=== PATIENT | female | born 1945 | race Caucasian/White ===

== ENCOUNTER → 2017-08-08 | Outpatient (REF) | payer MEDICARE ==
[2017-08-08 12:46] LABS: ERYTHROCYTE SEDIMENTATION RATE 4 mm/hr (0-30)
[2017-08-08 12:49] LABS: CPK CREATINE PHOSPHOKINASE 171 U/L (26-192)
== END ==
LOC: M LABDRAW1 10:55
DX: M79.603 Pain in arm, unspecified (principal)
CPT/HCPCS: 82550

== ENCOUNTER → 2017-10-15 | Outpatient (REF) | payer MEDICARE ==
[2017-10-15 19:32] LABS: BASO % 0.3 % (0.0-1.0); EOS # 0.1 10^3/uL (0.0-0.50); EOS % 1.3 % (0.0-3.0); HEMATOCRIT 44.4 % (36.0-47.0); HEMOGLOBIN 14.7 g/dl (12.0-15.5); IMMATURE GRANULOCYTE % 0.2 % (0-3.0); LYMPH # 1.7 10^3/uL (1.5-4.5); LYMPH % 15.2 % (24.0-44.0); MEAN CORPUSCULAR HEMOGLOBIN 30.9 pg (27.0-33.0); MEAN CORPUSCULAR HGB CONC 33.1 g/dl (32.0-36.5); MEAN CORPUSCULAR VOLUME 93.5 fl (80.0-96.0); MONO # 0.8 10^3/uL (0.0-0.8); MONO % 7.3 % (0.0-5.0); NEUTROPHILS # 8.2 10^3/uL (1.8-7.7); NEUTROPHILS % 75.7 % (36.0-66.0); PLATELET COUNT, AUTOMATED 329 10^3/uL (150-450); RED BLOOD COUNT 4.75 10^6/uL (4.00-5.40); RED CELL DISTRIBUTION WIDTH 13.3 % (11.5-14.5); WHITE BLOOD COUNT 10.9 10^3/uL (4.0-10.0)
[2017-10-15 19:39] LABS: ALBUMIN 3.7 GM/DL (3.2-5.2); ALBUMIN/GLOBULIN RATIO 1.32 (1.00-1.93); ALKALINE PHOSPHATASE 88 U/L (45-117); ALT/SGPT 17 U/L (12-78); ANION GAP 8 MEQ/L (8-16); AST/SGOT 13 U/L (7-37); BILIRUBIN,TOTAL 0.3 MG/DL (0.2-1.0); BLOOD UREA NITROGEN 19 MG/DL (7-18); CALCIUM LEVEL 9.1 MG/DL (8.8-10.2); CARBON DIOXIDE LEVEL 29 MEQ/L (21-32); CHLORIDE LEVEL 109 MEQ/L (98-107); CPK CREATINE PHOSPHOKINASE 55 U/L (26-192); CREATININE FOR GFR 0.72 MG/DL (0.55-1.30); GLOMERULAR FILTRATION RATE > 60.0 (>39); GLUCOSE, FASTING 88 MG/DL (70-100); POTASSIUM SERUM 4.1 MEQ/L (3.5-5.1); SODIUM LEVEL 146 MEQ/L (136-145); TOTAL PROTEIN 6.5 GM/DL (6.4-8.2)
[2017-10-15 20:03] LABS: ERYTHROCYTE SEDIMENTATION RATE 4 mm/hr (0-30)
== END ==
LOC: M LABDRAW1 18:14
DX: M79.1 Myalgia (principal); R53.83 Other fatigue
CPT/HCPCS: 82550

== ENCOUNTER 2018-12-04 23:14 | Emergency (ER) | payer MEDICARE ==
[~2018-12-04] VITALS: Ht 162.6 cm; Wt 82.7 kg
[2018-12-04 23:14] VITALS: BP 157/78
[~2018-12-04 23:14] MED LIST: AMLO10TA5 PO; ASPI81TAEC PO; ATOR1TAB21 PO; CLAR1TAB2 PO; CLOP75TA2 PO; IBUPOTC PO
[2018-12-04] MEDS ORDERED: PRED20TA (23:20)
== END 2018-12-05 01:40 | disposition home or self-care (01) ==
LOC: M ED 23:14
DX: S81.801A Unspecified open wound, right lower leg, initial encounter (principal); W22.8XXA Striking against or struck by other objects, initial encounter; Y92.099 Unspecified place in other non-institutional residence as the place of occurrence of the external cause; Y93.9 Activity, unspecified; Y99.9 Unspecified external cause status; I10 Essential (primary) hypertension; H53.33 Simultaneous visual perception without fusion; Z88.2 Allergy status to sulfonamides

== ENCOUNTER → 2020-08-19 | Outpatient (CLI) | payer MEDICARE ==
[~2020-08-19] MED LIST changes: -AMLO10TA5 PO; +AMLO1TAB25 PO; +ASPI-569 PO; -ASPI81TAEC PO; +PRED20TA
--- NOTE | 2020-08-19 12:59 | REPMRS ---
Patient History Patient is postmenopausal. Family history of breast cancer at age 48 in daughter. Patient had a right breast bx years ago that was negative, not sure of dates or where 3D TOMOSYNTHESIS WAS PERFORMED. The [facility] lifetime risk for breast cancer is 3.9%. Volpara breast density b. Digital Woman Screen Mammo: August 19, 2020 - Exam #: [id number] Bilateral CC and MLO view(s) were taken. Technologist: Mali Patel, Technologist Prior study comparison: November 02, 2017, bilateral digital mammo screening bilat, performed at [facility]. September 26, 2016, bilateral digital mammo screening bilat, performed at [facility]. FINDINGS: There are scattered fibroglandular densities. There has been no change in the appearance of the mammogram from the prior studies. There is a mild amount of residual fibroglandular tissue which is fairly symmetric. There is no interval development of dominant mass, architectural distortion, or clustered microcalcification suggestive of malignancy. Assessment: BI-RADS/ACR category 1 mammogram. Negative Mammogram. Recommendation Routine screening mammogram in 1 year (for women over age 40). This mammogram was interpreted with the aid of an FDA-approved computer-aided dectection system. Electronically Signed By: Manuel Barakat MD 08/19/20 [id number]
--- NOTE | 2020-08-19 13:44 | DEXAMM ---
INDICATION: Z13.820 SCR FOR OSTEOPOROSIS. COMPARISON: 10/28/2013, 05/11/2004. TECHNIQUE: Bone density was measured using dual-energy x-ray absorptiometry (DEXA). FINDINGS: AP SPINE L1-L4 BMD 1.101 g/cm2 Young Adult T-Score -0.8 Age Matched Z-Score 1.0. LT FEMUR, TOTAL BMD 0.722 g/cm2 Young Adult T-Score -2.3 Age Matched Z-Score -0.5. LT NECK BMD 0.646 g/cm2 Young Adult T-Score -2.8 Age Matched Z-Score -0.8. RT FEMUR, TOTAL BMD 0.775 g/cm2 Young Adult T-Score -1.8 Age Matched Z-Score 0.0. RT NECK BMD 0.700 g/cm2 Young Adult T-Score -2.4 Age Matched Z-Score -0.4. IMPRESSION: There is normal bone density of the spine. There is osteoporosis of the left hip. There is low bone density of the right hip. The density of the spine has increased 2.5% since the initial exam on 05/11/2004. The density of the spine decreased 11.2% since most recent exam on 10/28/2013. The density of the left hip has decreased 16.8% since initial exam on 05/11/2004. The density of the left hip has decreased 14.1% since most recent exam on 10/28/2013. The density of the right hip has decreased 12.7% since the initial exam on 05/11/2004. The density of the right hip has decreased 10.7% since the most recent exam on 10/28/2013. FOLLOW-UP: Recommendation for the next bone density exam: 2 years. <Electronically signed by Manuel Barakat > 08/19/20 [id number]
== END ==
LOC: M WHC 10:51
PROVIDERS: ATTEND Family Medicine
DX: Z12.31 Encounter for screening mammogram for malignant neoplasm of breast (principal); Z80.3 Family history of malignant neoplasm of breast; M81.0 Age-related osteoporosis without current pathological fracture; M85.851 Other specified disorders of bone density and structure, right thigh

== ENCOUNTER → 2020-09-17 | Outpatient (CLI) | payer MEDICARE ==
--- NOTE | 2020-09-17 10:35 | REP ---
INDICATION: R74.0 ELEVATION OF LEVELS LDH. COMPARISON: None. TECHNIQUE: Real-time sonographic evaluation of right upper quadrant performed. FINDINGS: There are multiple small subcentimeter gallstones in the gallbladder. There is no gallbladder wall thickening or pericholecystic fluid.. There is a moderate degree of intrahepatic biliary dilatation. However the common bile duct is not dilated measuring 2 mm in maximum diameter. The liver demonstrates homogeneous echotexture with no gross mass. Visualized portions of the pancreas are unremarkable. There is no pancreatic duct dilatation. Some portions of the pancreas are not visualized due to overlying bowel gas. The right kidney demonstrates no hydronephrosis, with a normal size of 9.5 cm in length. No free fluid is seen. IMPRESSION: Multiple subcentimeter gallstones in the gallbladder with no evidence of gallbladder wall thickening or pericholecystic fluid. Moderate intrahepatic biliary dilatation with no dilatation of common bile duct or pancreatic duct. Recommend further evaluation of the biliary system with MRI with and without contrast, and MRCP. <Electronically signed by Manuel Barakat > 09/17/20 103
== END ==
LOC: M WHC 09:26
PROVIDERS: ATTEND Family Medicine
DX: R74.01 Elevation of levels of liver transaminase levels (principal); K80.20 Calculus of gallbladder without cholecystitis without obstruction

== ENCOUNTER → 2021-01-10 | Outpatient (CLI) | payer MEDICARE ==
[2021-01-10 10:51] LABS: BLOOD UREA NITROGEN 15 MG/DL (7-18); CREATININE FOR GFR 0.67 MG/DL (0.55-1.30); GLOMERULAR FILTRATION RATE > 60.0 (>39)
== END ==
LOC: M PLALAB 08:48
PROVIDERS: ATTEND Internal Medicine Gastroenterology
DX: R93.3 Abnormal findings on diagnostic imaging of other parts of digestive tract (principal)

== ENCOUNTER → 2021-01-14 | Outpatient (CLI) | payer MEDICARE ==
[~2021-01-14] MED LIST changes: +PROHANCE 279.3MG/ML 15ML VIAL ONE
--- NOTE | 2021-01-14 15:49 | REP ---
INDICATION: ABNORMAL FINDINGS ON DX IMAGING OF PRT DIGESTIVE T. COMPARISON: Ultrasound 09/17/2020. TECHNIQUE: Multiple sequences obtained in the axial coronal planes prior to and following the intravenous administration of 15 mL ProHance. FINDINGS: No intrinsic liver mass is seen. There is no hepatomegaly. However there is moderate intrahepatic biliary dilatation. The common bile duct is also moderately dilated, most proximal aspect measures approximately 15-16 mm in diameter in the more distal aspect measures about 12 mm in maximum diameter. The gallbladder is also moderately distended with no it definite internal filling defect. There is a solid mass visualized in the marky hepatis which compresses the common bile duct. This measures approximately 4.1 x 2.9 x 2.7 cm. The spleen is normal in size with no intrinsic abnormality. The adrenal glands are normal. No pancreatic mass or pancreatic duct dilatation is seen. Subcentimeter cysts are seen in the left kidney. There is no hydronephrosis bilaterally. The abdominal aorta is normal in caliber. There is no free fluid. IMPRESSION: There is a mass in the marky hepatis measuring 4.1 x 2.9 x 2.7 cm. This compresses the common bile duct. There is diffuse dilatation of the common bile duct, centrally 15-16 mm in maximum diameter and distally 12 mm in maximum diameter. There is moderate intrahepatic biliary dilatation. There is moderate distention of the gallbladder. <Electronically signed by Manuel Barakat > 01/14/21 [id number]
== END ==
LOC: M PLAIMG 13:55
PROVIDERS: ATTEND Internal Medicine Gastroenterology
DX: R93.3 Abnormal findings on diagnostic imaging of other parts of digestive tract (principal); K76.89 Other specified diseases of liver; K82.8 Other specified diseases of gallbladder; K83.1 Obstruction of bile duct
CPT/HCPCS: 74183; A9576

== ENCOUNTER → 2021-01-29 | Outpatient (CLI) | payer MEDICARE ==
[~2021-01-29] MED LIST changes: +COQ-100C5 PO; +D31000TA2 PO; -PROHANCE 279.3MG/ML 15ML VIAL ONE; +VITMTA PO
== END ==
LOC: M LABSMTC 10:36
PROVIDERS: ATTEND Anesthesiology
DX: Z01.812 Encounter for preprocedural laboratory examination (principal); Z20.822 Contact with and (suspected) exposure to COVID-19

== ENCOUNTER 2021-02-02 14:26 | Day surgery (SDC) | payer MEDICARE ==
[~2021-02-02] VITALS: Ht 162.6 cm; Wt 78.8 kg
[~2021-02-02 14:26] MED LIST changes: +LR 1,000 ML IV ONE
[2021-02-02] MEDS ORDERED: ISOVUE-300 61% 50ML VIAL As Ordered ONE (14:46)
[2021-02-02] MEDS ORDERED: ROCURONIUM BROMIDE 50 MG/5 ML VIAL As Ordered ONE (15:21)
[2021-02-02] MEDS ORDERED: ONDANSETRON 4MG/2ML VIAL As Ordered ONE (15:21)
[2021-02-02] MEDS ORDERED: propofoL 200 MG/20 ML VIAL As Ordered ONE (15:21)
[2021-02-02] MEDS ORDERED: fentaNYL 100 MCG/2 ML INJECTION (J3010) As Ordered ONE (15:21)
[2021-02-02] MEDS ORDERED: LIDOCAINE 2% 100MG/5ML SDV (FOR ANES.) As Ordered ONE (15:21)
[2021-02-02] MEDS ORDERED: MIDAZOLAM INJ 2MG/2ML VIAL (J2250 PER 1MG) As Ordered ONE (15:21)
[2021-02-02] MEDS ORDERED: dexameTHASONE 4 MG/ML 1ML VIAL (J1100 PER 1MG) As Ordered ONE (15:21)
[2021-02-02] MEDS ORDERED: METOCLOPRAMIDE INJ 10MG/2ML VIAL (J2765 PER 1) As Ordered ONE (15:21)
[2021-02-02] MEDS ORDERED: SUGAMMADEX SODIUM 500 MG/5 ML VIAL (BRIDION) As Ordered ONE (15:21)
[2021-02-02] MEDS ORDERED: ePHEDrine SULFATE 25 MG/5 ML(5MG/ML) SYRINGE As Ordered ONE (15:33)
--- NOTE | 2021-02-02 16:52 | REP ---
INDICATION: BILE DUCT OBSTRUCTION. COMPARISON: None. TECHNIQUE: Two views.8 minutes 21 seconds of fluoroscopy time is reported. FINDINGS: A sequence of 2 last image hold fluoroscopically obtained spot radiographs of the abdomen document biliary stent placement. IMPRESSION: Procedural imaging. <Electronically signed by Janusz Carpenter > 02/02/21 [id number]
[2021-02-02] MEDS ORDERED: METOCLOPRAMIDE INJ 10MG/2ML VIAL (J2765 PER 1) IV PRN (16:55)
[2021-02-02] MEDS ORDERED: LR 1,000 ML IV SCH (16:55)
[2021-02-02] MEDS ORDERED: fentaNYL 100 MCG/2 ML INJECTION (J3010) IV PRN (16:55)
[2021-02-02] MEDS ORDERED: ONDANSETRON 4MG/2ML VIAL IV PRN (16:55)
[2021-02-02] MEDS ORDERED: oxyCODONE 5MG TAB PO PRN (16:55)
--- NOTE | 2021-02-02 17:01 | ROOR ---
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 Procedure: Pre-Anesthesia Assessment: - The heart rate, respiratory rate, oxygen saturations, blood pressure, adequacy of pulmonary ventilation, and response to care were monitored throughout the procedure. The Duodenoscope was introduced through the mouth, and advanced to the duodenum and used to inject contrast into the bile duct. The ERCP was accomplished without difficulty. The patient tolerated the procedure well. Findings: The bridges and buildings supervisor film was normal. The esophagus was successfully intubated under direct vision. The scope was advanced to a normal major papilla in the descending duodenum without detailed examination of the pharynx, larynx and associated structures, and upper GI tract. The upper GI tract was grossly normal. The bile duct was deeply cannulated. Contrast was injected. I personally interpreted the bile duct images. Ductal flow of contrast was adequate. Image quality was adequate. Contrast extended to the main bile duct. Contrast extended to the bifurcation, the right and left hepatic ducts. Contrast extended to the hepatic ducts. The proximal bile duct and intrahepatic ducts are dilated. The upper third of the main bile duct contained a filling defect thought to be a large (3 cm) polypoid mass. Placement of a wire into the biliary tree was passed successfully. Cells for cytology were obtained by brushing in the upper third of the main bile duct including the mass. One 8.5 Fr by 12 cm transpapillary plastic stent with a single external flap and a single internal flap was placed into the common hepatic duct/bifurcation above the polypoid mass. Small pieces of tissue debris and blood tinged bile flowed through the stent initially, but cleared within less than a minute of observation. The stent was in good position. Impression: - The examination showed a large (3 cm) polypoid partially obstructing mass at the common hepatic duct, just distal to the confluence of right and left hepatic ducts. - Biopsy via cytology brushing x2 obtained of the polypoid lesion. - One plastic stent was placed into the common bile duct, terminating proximally to the obstructing mass. Recommendation: - Await cytology results and await path results. - Return to my office at the next available appointment. - Refer to a Hepatobiliary surgeon at appointment to be scheduled. Procedure Code(s): --- Professional --- 58596, Endoscopic retrograde cholangiopancreatography (ERCP); with placement of endoscopic stent into biliary or pancreatic duct, including pre- and post-dilation and guide wire passage, when performed, including sphincterotomy, when performed, each stent [id number], 59, Endoscopic retrograde cholangiopancreatography (ERCP); with biopsy, single or multiple Diagnosis Code(s): --- Professional --- D49.0, Neoplasm of unspecified behavior of digestive system CPT copyright 2019 [employer]. All rights reserved. The codes documented in this report are preliminary and upon sales support coordinator review may be revised to meet current compliance requirements. Brenden Peralta MD Brenden Peralta MD 02/02/2021 5:00:49 PM Electronically signed by Brenden Peralta MD Number of Addenda: 0 Note Initiated On: 02/02/2021 2:24 PM Estimated Blood Loss: Estimated blood loss: none.
[2021-02-02 17:50] VITALS: BP 156/78
[2021-02-03] MEDS ORDERED: AMLO10TA PO (17:49)
[2021-02-03] MEDS ORDERED: IBUP-1114 PO (17:49)
--- NOTE | 2021-02-04 11:21 | CR ---
CONSULTATION DATE: 02/04/2021 REASON FOR CONSULTATION: I attended Cher Lin here in the Intensive Care Unit. The patient has been examined, chart reviewed. I spoke at length with the nurse at the bedside as well as Dr. Bishop regarding her care. I have spoken with Dr. Huizar earlier this morning. In essence, this is a 75-year-old female, DNR/DNI, who presented with pancreatitis. She underwent ERCP yesterday. Through the night she had mental status changes and profound worsening of an underlying acidosis. Initial blood gas this morning at 0236 had a pH of 6.992 with a pCO2 of 38. She was given IV fluids. The pH improved to 7.210, pCO2 of 41. She was given bicarb and her most recent blood gas done at 0749 shows a pH of 7.155, pCO2 of 40 and pO2 of 77. She has received 5 liters of Crystalloid. She is making minimal urine. Currently her heart rate remains in the 90s, blood pressure between 95 and the low 100s. She has not started vasopressors yet. PHYSICAL EXAMINATION: General: She is awake but clearly confused. Vital signs: As outlined above. HEENT: Pupils react. Sclerae clear. Jugular venous system flat. Trachea is in the midline. Chest: Clear anteriorly. Decreased at the extreme bases. Cardiac exam is distant but regular. Peripheral pulses are markedly diminished but are palpable. There is no mottling. Abdomen is markedly distended with profoundly hypoactive bowel sounds. Diffusely tender and there may be some mild rebound. Clearly there is guarding. Extremities with no cyanosis or clubbing. Neurologically she moves all extremities. She is awake and interactive but is clearly confused. Other laboratories show lactate which at 0400 this morning was 6.2, at 0846 down to 3.8. Sodium 146, K 4.4, chloride 109, bicarb of 18, BUN 56, creatinine elevated even from earlier this morning now at 2.43. Lipase of 10,089, essentially unchanged from earlier this morning but increased from 9,590 yesterday. I do not see any amylase and this will be ordered. White blood cell count 16.2, hemoglobin 16.6. IMPRESSION: 1. Profound metabolic acidosis. 2. Pancreatitis. 3. Renal failure. PLAN: I had a long discussion with Dr. Bishop regarding her status. Currently there is consideration of whether or not she needs central access. Her blood pressure is reasonable at the moment. She has 5 liters in and I would change to maintenance fluids at this point. Certainly low dose supplemental bicarb is not unwarranted. She is a DO NOT RESUSCITATE/DO NOT INTUBATE and I believe this is appropriate in view of her other issues. At this point I am in agreement with her current status. Her medication list has been reviewed. Given the degree of her pancreatitis, her acidosis, and her progressive renal failure, there is a very high likelihood she will not survive this hospitalization. Certainly we are available for other issues if they arise.
== END 2021-02-02 18:10 | disposition home or self-care (01) ==
LOC: M SDC 14:26
PROVIDERS: ATTEND Internal Medicine Gastroenterology
DX: C22.1 Intrahepatic bile duct carcinoma (principal); I10 Essential (primary) hypertension; Z79.899 Other long term (current) drug therapy; Z88.2 Allergy status to sulfonamides

== ENCOUNTER 2021-02-03 09:14 | Inpatient (IN) | payer MEDICARE ==
[~2021-02-03] VITALS: Ht 162.6 cm; Wt 77.0 kg
[~2021-02-03 09:14] MED LIST changes: -LR 1,000 ML IV ONE
[2021-02-03 10:49] LABS: BASO # 0.1 10^3/uL (0.0-0.2); BASO % 0.2 % (0.0-1.0); HEMATOCRIT 50.9 % (36.0-47.0); HEMOGLOBIN 17.2 g/dl (12.0-15.5); LYMPH # 0.6 10^3/uL (1.5-5.0); LYMPH % 1.9 % (24.0-44.0); MEAN CORPUSCULAR HEMOGLOBIN 30.9 pg (27.0-33.0); MEAN CORPUSCULAR HGB CONC 33.8 g/dl (32.0-36.5); MEAN CORPUSCULAR VOLUME 91.4 fl (80.0-96.0); MONO # 1.6 10^3/uL (0.0-0.8); MONO % 5.3 % (2.0-8.0); NEUTROPHILS # 27.8 10^3/uL (1.5-8.5); NEUTROPHILS % 91.9 % (36.0-66.0); PLATELET COUNT, AUTOMATED 355 10^3/uL (150-450); RED BLOOD COUNT 5.57 10^6/uL (4.00-5.40)
[2021-02-03] MEDS ORDERED: NS 1,000 ML IV SCH (10:55)
[2021-02-03] MEDS ORDERED: MORPHINE 4 MG/ML 1ML VIAL/SYRINGE (J2270) IV ONE (10:55)
[2021-02-03] MEDS ORDERED: ONDANSETRON 4MG/2ML VIAL IV ONE ×2 (10:55→12:35)
[2021-02-03 11:10] LABS: ALBUMIN 4.5 GM/DL (3.2-5.2); ALT/SGPT 34 U/L (12-78); BILIRUBIN,DIRECT 0.2 MG/DL (0.0-0.2); BILIRUBIN,TOTAL 0.8 MG/DL (0.2-1.0); BLOOD UREA NITROGEN 25 MG/DL (7-18); CALCIUM LEVEL 9.7 MG/DL (8.8-10.2); CARBON DIOXIDE LEVEL 24 MEQ/L (21-32); CHLORIDE LEVEL 104 MEQ/L (98-107); CREATININE FOR GFR 0.82 MG/DL (0.55-1.30); GLOMERULAR FILTRATION RATE > 60.0 (>39); GLUCOSE, FASTING 177 MG/DL (70-100); LIPASE 9590 U/L (73-393); POTASSIUM SERUM 3.1 MEQ/L (3.5-5.1); SODIUM LEVEL 139 MEQ/L (136-145); TOTAL PROTEIN 7.2 GM/DL (6.4-8.2)
[2021-02-03] MEDS: GASTROGRAFIN SOLUTION 30ML PO SCH ×2 (11:28→11:29)
[2021-02-03 11:46] LABS: WHITE BLOOD COUNT 30.2 10^3/uL (4.0-10.0)
[2021-02-03] MEDS ORDERED: ISOVUE-370 76% 100ML VIAL As Ordered ONE (13:15)
--- NOTE | 2021-02-03 13:50 | REP ---
INDICATION: gen abd pain s/p ERCP. COMPARISON: Comparison is made with MRI study from January 14, 2021. TECHNIQUE: Helical scanning is acquired following the intravenous injection of 100 mL of Isovue 370. Oral contrast was also administered. Coronal and sagittal MPR images are generated in addition to reformatted axial 3 mm slices. FINDINGS: Preliminary digital health promotion educator radiograph demonstrates a diffuse moderate ileus with gaseous distension of the colon. An elongate common bile duct stent is seen in the right upper quadrant. On axial CT images there is subsegmental atelectatic change in the lower lobes bilaterally posteriorly. No pleural effusion is seen. No upper abdominal ascites is seen. Pneumobilia is seen. The common bile duct stent is seen with its distal end in the duodenum at the junction of the 2nd and 3rd portion. The proximal end of the stent appears to be in the right common bile duct in the periportal region. It courses through the common bile duct along the anterior margin of the mass seen by MRI and ultrasound in the choledochocele. This mass as attenuation suggestive of some contrast enhancement although we do not have a pre contrast CT. There is retained a a injected ERCP colbert contrast in the lumen of the gallbladder. The gallbladder is rather dilated measuring approximately 11.5 cm in greatest dimension. Gallbladder wall is not thickened and no pericholecystic fluid is seen. There is extensive peripancreatic edema and fluid along the posterior aspect of the pancreas and extending well into the small bowel mesentery. The edema extends in the posterior pararenal soft tissues of the retroperitoneum 1 extending into the aortocaval region. There is no evidence of hemorrhagic change or pancreatic abscess. Kidneys enhance symmetrically. Tiny cortical cysts are seen. The abdominal aorta is tortuous but normal in caliber. A normal appendix is seen. Urinary bladder is unremarkable. The uterus is surgically absent. No abdominal wall defect is seen. There is no visible free air. IMPRESSION: Findings consistent with acute pancreatitis with peripancreatic extensive edema and ileus pattern in the bowel gas. The gallbladder is distended. The common bile duct stent appears in good position coursing along the anterior margin of a mass in the common bile duct. There is mild intrahepatic ductal dilation of the biliary tract. <Electronically signed by Janusz Carpenter > 02/03/21 [id number]
[2021-02-03] MEDS ORDERED: POTASSIUM CHLORIDE 10MEQ SR TABLET PO ONE (16:20)
[2021-02-03] MEDS ORDERED: PIPERACILLIN/TAZOBACTAM SOD 4.5 GM in D5W MINI-BAG PLUS 50 ML IV ONE (16:20)
[2021-02-03 17:31] LABS: RSV AMPLIFICATION NEGATIVE (NEGATIVE)
[2021-02-03] MEDS ORDERED: IBUP-1114 PO (17:49)
[2021-02-03] MEDS ORDERED: AMLO10TA PO (17:49)
[2021-02-03] MEDS ORDERED: HOME MED LIST COMPLETE! XX SCH (17:55)
[2021-02-03] MEDS ORDERED: MORPHINE 2 MG/ML 1ML VIAL (J2270) IV PRN (18:20)
--- NOTE | 2021-02-03 18:27 | HPEPDOC ---
[facility] Medical History & Physical Date of Admission Feb 03, 2021 Date of Service: Feb 03, 2021 Primary Care Physician: DOUG VELASCO MD [facility] Other Provider Dr. Peralta, Gastroenterology Attending Physician: SHUBHAM BISHOP MD History and Physical CHIEF COMPLAINT: Abdominal pain and vomiting HISTORY OF PRESENT ILLNESS: Ms. Rodriguez is a 75-year-old female who presents to the ED with diffuse abdominal pain and 6 episodes of vomiting since last evening about 1 hour s/p ERCP with Dr. Peralta. After her procedure, she came home and felt 12/10 diffuse bilateral lower quadrant abdominal pain that radiated to the bilateral upper quadrants and back. She tried to take Ibuprofen but vomited every time she tried to swallow with water. Unable to get any relief, she called Dr. Peralta who advised her to go to the ED. In the ED, her pain has improved to a 6/10 with IV Morphine 4mg. The pain remains in her bilateral lower quadrants. She had one additional episode of bilious vomiting. She is able to tolerate sips. She denies chest pain, SOB, nausea, diarrhea, hematemesis, numbness or tingling in the extremities, fever, chills, or weakness. She was found to have marked leukocytosis (WBC 30.2) with absolute neutrophilia, polycythemia (Hgb 17.2/HCT 50.9), hypokalemia (K 3.1), and significantly elevated lipase (9590). CT abdomen & pelvis shows findings consistent with acute pancreatitis and gallbladder distention. Of relevant note, patient was found to have elevated LDH from PCP blood work in the Spring. Abdominal US had concerning GI findings necessitating referral. Patient had a abdominal MRI through GI on 01/14/2021 showing hepatic bile duct mass compressing the common bile duct which prompted ERCP on 02/02/2021. Dr. Peralta placed a plastic stent into the common bile duct and biopsied a large 3cm polypoid mass. The mass was sent for cytology which found some atypical cells positive for malignancy. The patient was told of these results by Dr. Peralta in the ED and will continue to work with him. The patient was admitted to the hospital service with abdominal pain and vomiting concerning for acute pancreatitis most likely 2/2 s/p ERCP. PAST MEDICAL HISTORY: - HTN - Right wrist injury presumably in the Spring 2020; healing without intervent ions - Presumed basal cell carcinoma s/p excision on left nose bridge in 2017 - Vertebral artery stenosis; completed Plavix therapy in 2016 PAST SURGICAL HISTORY: - Nose bridge excision in 2017 for presumed basal cell carcinoma - ERCP, 02/02/2021 SOCIAL HISTORY: Marital status: Children: 3 children; 1 daughter has h/o breast cancer Tobacco use: quit smoking 29 years ago; smoked 1 pack per week ETOH: denies Illicit drug use: denies IV drug use: denies FAMILY HISTORY: Father: from pancreatic cancer in 2000 Mother: PMHx of pneumonia Siblings: 1 brother from COPD Children: 1 daughter with h/o breast cancer ALLERGIES: Please see below. REVIEW OF SYSTEMS: CONSTITUTIONAL: Denies fever, chills, unintentional weight changes, fatigue. HEENT: Denies changes headaches, changes in vision, dysphagia. CARDIOVASCULAR: Denies CP, palpitations. RESPIRATORY: Denies SOB, PND. GASTROINTESTINAL: Reports 7 episodes of vomiting, diffuse abdominal pain that radiates to the back. Denies nausea, hematemesis, diarrhea, constipation. GENITOURINARY: Reports increased urinary frequency since ERCP. Denies dysuria, pyuria, hematuria, changes in bowel movements. SKIN: H/o presumed basal cell carcinoma on left nose bridge. MUSCULOSKELETAL: Denies weakness, pain in extremities. NEUROLOGICAL: Denies changes in memory, confusion. HOME MEDICATIONS: Please see below. PHYSICAL EXAMINATION: VITAL SIGNS: Please see below. GENERAL APPEARANCE: Patient appears stated age in no acute distress lying upright in the ED bed. HEENT: NC, AT. Pupils equal and reactive. Mucus membranes moist. CARDIOVASCULAR: RRR. Systolic murmur heard on auscultation. No gallops or rubs. LUNGS: Slightly labored breathing with mild expiratory wheezing heard on auscultation bilaterally. No crackles heard. No use of accessory muscles. ABDOMEN: Soft abdomen. Bilateral lower quadrant distention. Tender to palpation in bilateral lower quadrants with mild discomfort in bilateral upper quadrants. Positive bowel sounds. There was guarding on exam. No rigidity. Negative Jenkins's sign. EXTREMITIES: 2+ peripheral pulses in all 4 extremities. Trace bilateral pitting edema present. Non-tender to palpation in BLE. NEUROLOGICAL: No focal deficits observed. A&O X4. PSYCHIATRIC: Mood is stable. LABORATORY DATA: See below. IMAGIN02/03/2021 CT Abd & Pel w/ IV & Oral Contrast Impression: "Findings consistent with acute pancreatitis with peripancreatic extensive edema and ileus pattern in the bowel gas. The gallbladder is distended. The common bile duct stent appears in good position coursing along the anterior margin of a mass in the common bile duct. There is mild intrahepatic ductal dilation of the biliary tract." 02/03/2021 Chest X-Ray Impression: "Mild bibasilar atelectasis/infiltrate." MICROBIOLOGY: Please see below. ASSESSMENT/PLAN: Ms. Rodriguez is a 75-year-old female with a h/o HTN, healing right wrist injury (2020), presumed basal cell carcinoma (2016), and vertebral artery stenosis (2 016; completed Plavix therapy) presents with diffuse abdominal pain and vomiting concerning for acute pancreatitis most likely 2/2 s/p ERCP. # Acute pancreatitis most likely 2/2 s/p ERCP - Patient had ERCP on 02/02/2021; 3cm polypoid mass was biopsied and cytology reports atypical cells positive for malignancy. Patient is aware of her diagnosis and will continue to work with Dr. Alfaro; will need to establish with medical oncology upon discharge. - Patient became symptomatic approximately 1 hour s/p ERCP procedure. - Gastroenterology consulted; we appreciate Dr. Alfaro's continued care and recom mendations on this patient. - NS 150ml/hr ordered. - IV morphine 2mg Q4H ordered. - Will consider antiemetics after EKG results to assess QTc. - IV Zosyn 3.375mg ordered. - NPO with sips and chips. - Repeat CBC, CMP, lipase, triglyceride, lactate, GGT, Mg. # Leukocytosis - WBC 30.2 most likely 2/2 acute pancreatitis - IV Zosyn Q6H ordered. - UA ordered. - Blood cultures X2 ordered. - CXR shows mild bibasilar infiltrate. - Incentive spirometry ordered. - Repeat CBC, lactate. # Hypokalemia - K 3.1; hypokalemia most likely 2/2 dehydration. - Patient was given 1 KCl PO in the ED. - 2 K-runs 10mEq ordered. - NS 150mls/hr ordered. - Telemetry ordered to monitor electrolyte abnormalities. - Repeat CMP. # Systolic murmur - Patient was aware of a murmur. - ECHO ordered. - EKG ordered. # HTN - Continue home amlodipine. # Right wrist injury - Patient reports a right wrist injury which prompted her visit to her PCP, leading to abNL lab work ([facility]) and subsequent referral to GI. - She states her wrist is slowly healing and does not complain of pain currently; there does not appear to be any obvious swelling or abnormalities present. # Presumed basal cell carcinoma - Patient has excision site on left nose bridge. - Patient reports skin cancer history and excision procedure done in 2017. # Vertebral artery stenosis - Patient has a h/o vertebral artery stenosis and presumable completed a course of Plavix. - When patient was questioned, she could not remember the details regarding her admission. Code Status: DNR/DNI; patient's health care proxy is DVT prophylaxis: TEDs and sequentials. Disposition: Pending clinical improvement; expected at least 2 midnight stay Vital Signs Vital Signs Date Time Temp Pulse Resp B/P (MAP) Pulse Ox O2 Delivery O2 Flow Rate FiO2 02/03/21 17:14 93 91 02/03/21 16:37 160/91 (114) 02/03/21 13:44 Room Air 02/03/21 12:59 2.0 02/03/21 11:28 18 02/03/21 09:16 97.7 Laboratory Data Labs 24H Laboratory Tests 2 02/03/21 10:19: Immature Granulocyte % (Auto) 0.7, Neutrophils (%) (Auto) 91.9H, Lymphocytes (%) (Auto) 1.9L, Monocytes (%) (Auto) 5.3, Eosinophils (%) (Auto) 0.0, Basophils (%) (Auto) 0.2, Neutrophils # (Auto) 27.8H, Lymphocytes # (Auto) 0.6L, Monocytes # (Auto) 1.6H, Eosinophils # (Auto) 0.0, Basophils # (Auto) 0.1, Nucleated Red Blood Cells % (auto) 0.0, Anion Gap 11, Glomerular Filtration Rate > 60.0, Calcium Level 9.7, Total Bilirubin 0.8, Direct Bilirubin 0.2, Aspartate Amino Transf (AST/SGOT) 20, Alanine Aminotransferase (ALT/SGPT) 34, Alkaline Phosphatase 85, Total Protein 7.2, Albumin 4.5, Albumin/Globulin Ratio 1.7, Lipase 9590H 02/03/21 16:25: Coronavirus (COVID-19)(PCR) NEGATIVE, Influenza Type A (RT-PCR) NEGATIVE, Influenza Type B (RT-PCR) NEGATIVE, Respiratory Syncytial Virus (PCR) NEGATIVE CBC/BMP Laboratory Tests 02/03/21 10:19 Home Medications Scheduled Amlodipine Besylate (Norvasc) 10 Mg Tablet, 10 MG PO DAILY Cholecalciferol (Vitamin D3) (Vitamin D3) 1,000 Unit Tablet, 2,000 UNITS PO DAILY Multivitamins (Thera M Plus Tablet) 1 Each Tablet, 1 TAB PO DAILY Ubidecarenone (Coq-10) 100 Mg Capsule, 100 MG PO DAILY Scheduled PRN Ibuprofen (Ibuprofen) 400 Mg Tablet, 400 MG PO ASDIRECTED PRN for PAIN LEVEL 1-4 Allergies Coded Allergies: Sulfa (Sulfonamide Antibiotics) (Verified Allergy, Intermediate, 02/02/21) A-FIB/CHADSVASC A-FIB History Current/History of A-Fib/PAF?: No Current PO Anticoag Therapy: No GME ATTESTATION GME ATTESTATION My faculty preceptor for this patient encounter was physically present during the encounter and was fully available. All aspects of the patient interview, examination, medical decision making process, and medical care plan development were reviewed and approved by the faculty preceptor. The faculty preceptor is aware and concurs with the plan as stated in the body of this note and will attest to such by his/her cosignature. ATTENDING NOTE I, Shubham Bishop, have independently examined this patient and performed my own physical exam, as well as reviewed the documentation and edited where necessary. I have discussed in detail with the resident / student the findings and plan of treatment as documented by the resident / student and edited their note. I agree with their findings and treatment plan and have edited their documentation. I will continue to follow the patient during this hospital stay. CHERELLE ANNA OMS-3 Feb 03, 2021 18:27 SHUBHAM BISHOP MD Feb 03, 2021 20:54
[2021-02-03] MEDS: NS 1,000 ML IV SCH (19:26)
[2021-02-03] MEDS: KCL 10MEQ/100ML SWI (KRUN) 10 MEQ in IV 1 EA IV SCH ×2 (19:28→20:43)
--- NOTE | 2021-02-03 19:57 | REP ---
INDICATION: Marked leukocytosis with absolute neutrophilia COMPARISON: 05/18/2015. TECHNIQUE: Frontal and lateral FINDINGS: Lungs: There is mild bibasilar atelectatic change versus early infiltrate. Heart: Upper limits of normal in size. Mediastinum: There is a hiatal hernia. The mediastinal silhouette is unchanged. Pleural angles: Unremarkable.. Bones and soft tissues: Unremarkable. IMPRESSION: Mild bibasilar atelectasis/infiltrate. <Electronically signed by Manuel Barkaat > 02/03/211953
[2021-02-03 21:05] VITALS: BP 115/80
[2021-02-03 21:18] LABS: CHOLESTEROL RISK RATIO 3.562 (<5)
[2021-02-03] MEDS: PIPERACILLIN/TAZOBACTAM SOD 3.375 GM in D5W MINI-BAG PLUS 50 ML IV SCH (23:50)
[2021-02-04] VITALS (53 sets, daily range): BP systolic 54–203; BP diastolic 27–120
[2021-02-04] MEDS ORDERED: MAG SULF 1GM/100ML (MAG RUN) 1 GM in IV 1 EA IV ONE (02:25)
[2021-02-04] MEDS ORDERED: NS 1,000 ML IV SCH (02:25)
[2021-02-04 02:51] LABS: ABG BASE EXCESS -21.9 (-2.0-2.0); ABG HCO3 9.1 MEQ/L (22.0-26.0); ABG O2 SATURATION 98.8 % (95.0-99.0); ABG PARTIAL PRESSURE CO2 38.5 mmHg (35.0-45.0); ABG PARTIAL PRESSURE O2 209.7 mmHg (75.0-100.0); ABG STANDARD HCO3 9.6 MEQ/L (22.0-26.0); ABG TOTAL CO2 10.3 MEQ/L (23.0-31.0); ABG pH (ARTERIAL) 6.992 UNITS (7.350-7.450)
[2021-02-04] MEDS: NS 1,000 ML IV SCH (03:00)
[2021-02-04] MEDS ORDERED: SODIUM BICARBONATE 8.4% INJ 50 ML SYRINGE IV STA ×2 (03:02→11:17)
[2021-02-04 03:11] LABS: HEMATOCRIT 49.3 % (36.0-47.0); HEMOGLOBIN 16.5 g/dl (12.0-15.5); MEAN CORPUSCULAR HGB CONC 33.5 g/dl (32.0-36.5); MEAN CORPUSCULAR VOLUME 92.7 fl (80.0-96.0); PLATELET COUNT, AUTOMATED 333 10^3/uL (150-450); RED BLOOD COUNT 5.32 10^6/uL (4.00-5.40); WHITE BLOOD COUNT 15.5 10^3/uL (4.0-10.0)
[2021-02-04 03:31] LABS: HEMOGLOBIN A1c 5.2 %
[2021-02-04] MEDS: VANCOMYCIN HCL 750 MG, VIAL MATE ADAPTER 1 EACH in NS 250 ML IV SCH ×2 (03:35→05:00)
[2021-02-04 03:38] LABS: ATYPICAL LYMPH 3 % (0-5); LYMPHOCYTES 8 % (16-44); METAMYELOCYTES 9 % (0-0); MONOCYTES 6 % (0-5); NEUTROPHILS 64 % (28-66)
[2021-02-04 03:40] LABS: PLATELET ESTIMATE NORMAL (NORMAL); SMUDGE CELLS 1+; TOXIC VACUOLATION 1+
[2021-02-04 03:47] LABS: ALBUMIN 2.8 GM/DL (3.2-5.2); CALCIUM LEVEL 7.8 MG/DL (8.8-10.2); CHOLESTEROL RISK RATIO 2.95 (<5); CREATININE FOR GFR 2.03 MG/DL (0.55-1.30); GLOMERULAR FILTRATION RATE 25.3 (>39); MAGNESIUM LEVEL 1.7 MG/DL (1.8-2.4); POTASSIUM SERUM 4.3 MEQ/L (3.5-5.1); THYROID STIMULATING HORMONE 4.32 uIU/ML (0.358-3.740)
--- NOTE | 2021-02-04 03:47 | IPNPDOC ---
Subjective Date Seen The patient was seen on 02/04/21. Subjective Chief Complaint/HPI Interval history Rapid assessment was called and I immediately went to assess the patient at bedside. According to her nurse prior to the rapid assessment being called she was sitting on the toilet and was sluggish however was able to get back to her bed with help. Patient then became progressively altered and then became minimally responsive. At bedside patient was not responding to any verbal commands but she was able to move with painful stimuli. Her pupils were unequal in size with the left more dilated and fixed than the right and not responsive to light. Her blood pressure measured at bedside with the machine was 203/120 and a manual blood pressure was attempted and reported to be SBP of around 180s. Patient has pronounced rigidity and stiffness in bilateral upper extremities and also noted she was tremulous which according to the nurse is not her baseline. Her initial modified NIH scale was > 20 with some components unable to be assessed due to nonverbal status and not being able to follow commands. I ordered for a stat CT brain without contrast as well as MRI of the brain with the suspicion that this could be TIA versus CVA versus seizure. I have also ordered a prolactin level as well as a CPK level. I was told that her IV in her right arm may have infiltrated in order for a stat IV placement on the left. Pt is in severe sepsis with an up trending lactic acid (with suspected sourcelung as initial chest x-ray shows possible infiltrate) and ordered repeat chest x- ray. Also ordered vancomycin to add to her antibiotic regimen of Zosyn as well as MRSA PCR screen and procalcitonin. I have also called patient's , Manuel at [phone] and updated him on Ms. Soto's current condition. I will attempt to call neurology orthodontic band maker Dr. Gonzalez for further recommendations and will attempt to do another modified NIH scale score if patient becomes more responsive. At 3:[address] Cristobal who called me for her MRI and CT results which did not show any acute infarcts on either. I re-assessed her at 4:25 with a full neuro exam and cranial nerve exam was wnl. her strength is 5/5 throughout but diminshed reflexes throughout. Her Modified NIH scale on reassessment is 3. She's AAOx3 and able to follow all commands appropriately. Will start her on Keppra for suspected generalized seizure with postictal state. am team to consult neurology formally as necessary. Her bp on tele monitor is 118 SBP. Will order for 1 L bolus of fluid on top of her maintenance. [facility] Vital Signs Date Time Temp Pulse Resp B/P (MAP) Pulse Ox O2 Delivery O2 Flow Rate FiO2 02/03/21 21:05 97.8 104 19 115/80 (92) 98 Room Air 02/03/21 12:59 2.0 I&O- Last 24 Hours up to 6 AM 02/04/21 06:00 Intake Total 1450 ml Balance 1450 ml Laboratory Data 24H LABS Laboratory Tests 2 02/03/21 10:19: Immature Granulocyte % (Auto) 0.7, Neutrophils (%) (Auto) 91.9H, Lymphocytes (%) (Auto) 1.9L, Monocytes (%) (Auto) 5.3, Eosinophils (%) (Auto) 0.0, Basophils (%) (Auto) 0.2, Neutrophils # (Auto) 27.8H, Lymphocytes # (Auto) 0.6L, Monocytes # (Auto) 1.6H, Eosinophils # (Auto) 0.0, Basophils # (Auto) 0.1, Nucleated Red Blood Cells % (auto) 0.0, Anion Gap 11, Glomerular Filtration Rate > 60.0, Calcium Level 9.7, Total Bilirubin 0.8, Direct Bilirubin 0.2, Aspartate Amino Transf (AST/SGOT) 20, Alanine Aminotransferase (ALT/SGPT) 34, Alkaline Phosphatase 85, Total Protein 7.2, Albumin 4.5, Albumin/Globulin Ratio 1.7, Lipase 9590H 02/03/21 16:25: Coronavirus (COVID-19)(PCR) NEGATIVE, Influenza Type A (RT-PCR) NEGATIVE, Influenza Type B (RT-PCR) NEGATIVE, Respiratory Syncytial Virus (PCR) NEGATIVE 02/03/21 20:09: Lactic Acid Level 3.2*H, Magnesium Level 1.9, Gamma Glutamyl Transferase 29, Triglycerides Level 70, Total Cholesterol 171, LDL Cholesterol 109H, Non-HDL Cholesterol (LDL + VLDL) 123, Total HDL Cholesterol 48, Cholesterol/HDL Ratio 3.562 02/04/21 01:41: Neutrophils (%) (Auto) , Nucleated Red Blood Cells % (auto) 0.1H, Lactic Acid Followup at 4 Hours 5.0*H 02/04/21 02:29: Bedside Glucose (Misc Panel) 140H 02/04/21 02:36: Blood Gas Bicarbonate Standard 9.6L, Arterial Blood pH 6.992*L, Arterial Blood Partial Pressure CO2 38.5, Arterial Blood Partial Pressure O2 209.7H, Arterial Blood Total CO2 10.3L, Arterial Blood HCO3 9.1L, Arterial Blood Base Excess - 21.9L, Arterial Blood Oxygen Saturation 98.8 CBC/BMP Laboratory Tests 02/03/21 10:19 02/04/21 01:41 Microbiology Microbiology 02/03/21 Blood Culture, Received Pending 02/03/21 Blood Culture, Received Pending GME ATTESTATION ATTENDING NOTE MRI was negative for stroke. Patient's mentation waxing and waning. Unclear if she had a seizure and there is a postictal component. I discussed the case with neurologist orthodontic band maker doctor Edison, who agrees this is most likely seizure. Stroke was ruled out. Her lactate continuous to rise could be as a result of worsening sepsis versus from seizure activity. The elevated lactate in itself can explain seizure, so can severe sepsis. Blood pressure has been steadily dropping I'm concerned this is from worsening sepsis likely from the pneumonia she is currently receiving a liter bolus and I ordered another liter bolus of NS. Despite this she doesn't appear to be responding adequately I extensively discussed the case and consulted with label tacker orthodontic band maker Dr. Arceo who agreed with starting peripheral Levofed and that he would see her at 8 AM when he arrives. Vancomycin was added to her antibiotic regimen Keppra was added for possible seizure Patient was transferred to the ICU Rest Per resident note Ottoniel Forbes DO Feb 04, 2021 03:38 KAREN SMALLWOOD MD Feb 04, 2021 05:14
--- NOTE | 2021-02-04 03:50 | REPVR ---
PROCEDURE INFORMATION: Exam: MR Head Without Contrast Exam date and time: 02/04/2021 3:36 AM Age: 75 years old Clinical indication: Other: Stroke alert TECHNIQUE: Imaging protocol: MR of the head without contrast. COMPARISON: CT Head without contrast 02/04/2021 2:51 AM FINDINGS: Brain: There is mild cerebral volume loss. 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 No signs of a recent infarction or hemorrhage. No midline shift or mass effect. Cerebral ventricles: Normal. No ventriculomegaly. Bones/joints: Unremarkable. Paranasal sinuses: Normal as visualized. No acute sinusitis. Mastoid air cells: Normal as visualized. No mastoid effusion. Soft tissues: Unremarkable. IMPRESSION: Mild cerebral volume loss and chronic white matter changes. No acute intracranial abnormality. Electronically signed by: Alexander Cristobal On 02/04/2021 03:49:51 AM
--- NOTE | 2021-02-04 03:54 | REPVR ---
PROCEDURE INFORMATION: Exam: CT Head Without Contrast Exam date and time: 02/04/2021 2:32 AM Age: 75 years old Clinical indication: Other: Neuro changes TECHNIQUE: Imaging protocol: Computed tomography of the head without contrast. Radiation optimization: All CT scans at this facility use at least one of these dose optimization techniques: automated exposure control; mA and/or kV adjustment per patient size (includes targeted exams where dose is matched to clinical indication); or iterative reconstruction. COMPARISON: MRI-Brain without Contrast 05/19/2015 3:37 PM FINDINGS: Brain: Residual intravascular contrast is present. Mild cerebral volume loss and chronic white matter changes. No hemorrhage or acute infarction is seen. No midline shift or mass effect. Cerebral ventricles: No ventriculomegaly. Paranasal sinuses: Visualized sinuses are clear. Mastoid air cells: Mastoid air cells are clear. Bones/joints: Unremarkable. No acute fracture. Soft tissues: Unremarkable. IMPRESSION: No acute intracranial abnormality. Electronically signed by: Alexander Cristobal On 02/04/2021 03:53:37 AM
--- NOTE | 2021-02-04 04:16 | REPVR ---
PROCEDURE INFORMATION: Exam: XR Chest Exam date and time: 02/04/2021 3:51 AM Age: 75 years old Clinical indication: Other: Asperation risk; Additional info: Aspiration risk, after CT head and mri TECHNIQUE: Imaging protocol: XR of the chest. Views: 1 view. COMPARISON: CR Chest, 2 view PA, Lat 02/03/2021 6:58 PM FINDINGS: Lungs: Airspace consolidation in the left lower lobe and basilar scarring/atelectasis. Pleural spaces: Small left pleural effusion. No pneumothorax. Heart/Mediastinum: Unremarkable. No cardiomegaly. Vasculature: Biliary enteric stent in the right upper quadrant. Bones/joints: Unremarkable. IMPRESSION: Stable left lower lobe infiltrate and small pleural effusion. Electronically signed by: Alexander Cristobal On 02/04/2021 04:15:50 AM
[2021-02-04 04:22] LABS: HEMATOCRIT 51.1 % (36.0-47.0); HEMOGLOBIN 16.6 g/dl (12.0-15.5); MEAN CORPUSCULAR HEMOGLOBIN 30.6 pg (27.0-33.0); MEAN CORPUSCULAR HGB CONC 32.5 g/dl (32.0-36.5); MEAN CORPUSCULAR VOLUME 94.3 fl (80.0-96.0); PLATELET COUNT, AUTOMATED 340 10^3/uL (150-450); RED BLOOD COUNT 5.42 10^6/uL (4.00-5.40); WHITE BLOOD COUNT 16.2 10^3/uL (4.0-10.0)
[2021-02-04 04:43] LABS: INR 1.36; PROTHROMBIN TIME 17.2 SECONDS (12.7-14.5)
[2021-02-04 04:44] LABS: PARTIAL THROMBOPLASTIN TIME 34.9 SECONDS (25.9-37.0)
[2021-02-04 04:57] LABS: ALBUMIN 2.8 GM/DL (3.2-5.2); BILIRUBIN,TOTAL 0.8 MG/DL (0.2-1.0); CALCIUM LEVEL 8.2 MG/DL (8.8-10.2); CREATININE FOR GFR 2.43 MG/DL (0.55-1.30); GLOMERULAR FILTRATION RATE 20.6 (>39); MAGNESIUM LEVEL 2.8 MG/DL (1.8-2.4); POTASSIUM SERUM 4.4 MEQ/L (3.5-5.1)
[2021-02-04] MEDS: PIPERACILLIN/TAZOBACTAM SOD 3.375 GM in D5W MINI-BAG PLUS 50 ML IV SCH ×2 (05:00→12:51)
[2021-02-04 05:01] LABS: CPK CREATINE PHOSPHOKINASE 372 U/L (26-192); LIPASE 10901 U/L (73-393)
[2021-02-04] MEDS ORDERED: NS 1,000 ML IV ONE ×3 (05:05→08:05)
[2021-02-04] MEDS ORDERED: NOREPINEPHRINE BITARTRATE 8 MG in D5W 500 ML IV SCH (05:15)
[2021-02-04 05:33] LABS: ATYPICAL LYMPH 3 % (0-5); LYMPHOCYTES 10 % (16-44); METAMYELOCYTES 12 % (0-0); MONOCYTES 2 % (0-5); NEUTROPHILS 56 % (28-66); PLATELET ESTIMATE NORMAL (NORMAL)
[2021-02-04 05:34] LABS: TOXIC VACUOLATION 1+
[2021-02-04 05:50] LABS: ABG BASE EXCESS -11.2 (-2.0-2.0); ABG HCO3 16.1 MEQ/L (22.0-26.0); ABG O2 SATURATION 92.7 % (95.0-99.0); ABG PARTIAL PRESSURE CO2 41.3 mmHg (35.0-45.0); ABG PARTIAL PRESSURE O2 75.7 mmHg (75.0-100.0); ABG STANDARD HCO3 15.7 MEQ/L (22.0-26.0); ABG TOTAL CO2 17.4 MEQ/L (23.0-31.0)
[2021-02-04] MEDS ORDERED: levETIRAcetam INJection 500 MG in D5W MINI-BAG PLUS 100 ML IV SCH (06:00)
[2021-02-04] MEDS ORDERED: PANTOPRAZOLE 40MG VIAL (C9113 PER 1) IV ONE (07:25)
[2021-02-04 08:08] LABS: ABG BASE EXCESS -14.2 (-2.0-2.0); ABG HCO3 13.9 MEQ/L (22.0-26.0); ABG O2 SATURATION 92.9 % (95.0-99.0); ABG PARTIAL PRESSURE CO2 40.4 mmHg (35.0-45.0); ABG PARTIAL PRESSURE O2 77.3 mmHg (75.0-100.0); ABG STANDARD HCO3 13.7 MEQ/L (22.0-26.0); ABG TOTAL CO2 15.2 MEQ/L (23.0-31.0)
[2021-02-04 08:11] LABS: ABG pH (ARTERIAL) 7.155 UNITS (7.350-7.450)
[2021-02-04] MEDS: PANTOPRAZOLE SODIUM 40 MG in D5W 50 ML IV SCH ×2 (08:45→14:23)
[2021-02-04] MEDS: SUCRALFATE SUSP 1GM/10ML UD PO SCH ×2 (08:57→12:00)
[2021-02-04] MEDS ORDERED: FIDAXOMICIN 200 MG TAB (DIFICID) PO SCH (09:00)
[2021-02-04 09:05] LABS: HEMATOCRIT 49.5 % (36.0-47.0); HEMOGLOBIN 15.9 g/dl (12.0-15.5)
--- NOTE | 2021-02-04 10:49 | REP ---
INDICATION: Hypoxia. COMPARISON: Comparison chest x-ray February 04, 2021. TECHNIQUE: Portable upright AP chest radiograph. FINDINGS: The heart is moderately enlarged. There is increased density behind the heart in the left base and a few air bronchograms are visible. Atelectasis, likely with some effusion in the pleural space. Pulmonary vasculature is cephalized. The aorta is tortuous. There is a biliary stent visible in the right upper quadrant of the abdomen. IMPRESSION: Small left pleural effusion. Increased air bronchograms and increased density left lower lobe. Cardiomegaly. <Electronically signed by Janusz Carpenter > 02/04/21 1040
[2021-02-04 10:53] LABS: VENOUS BASE EXCESS -16.9 (-2.0-2.0); VENOUS HCO3 15.9 MEQ/L (23.0-27.0); VENOUS O2 SATURATION 65.1 % (60.0-80.0); VENOUS PARTIAL PRESSURE CO2 70.2 mmHg (38.0-50.0); VENOUS PARTIAL PRESSURE O2 43.1 mmHg (30.0-50.0); VENOUS PH 6.973 UNITS (7.330-7.430); VENOUS STANDARD HCO3 11.5 MEQ/L; VENOUS TOTAL CO2 18.1 MEQ/L (24.0-28.0)
[2021-02-04 10:57] LABS: HEMATOCRIT 47.2 % (36.0-47.0); HEMOGLOBIN 14.8 g/dl (12.0-15.5); MEAN CORPUSCULAR HEMOGLOBIN 31.2 pg (27.0-33.0); MEAN CORPUSCULAR HGB CONC 31.4 g/dl (32.0-36.5); MEAN CORPUSCULAR VOLUME 99.4 fl (80.0-96.0); PLATELET COUNT, AUTOMATED 261 10^3/uL (150-450); RED BLOOD COUNT 4.75 10^6/uL (4.00-5.40); WHITE BLOOD COUNT 12.1 10^3/uL (4.0-10.0)
[2021-02-04 11:13] LABS: FIBRINOGEN 326 MG/DL (268-480); INR 1.62; PROTHROMBIN TIME 19.7 SECONDS (12.7-14.5)
--- NOTE | 2021-02-04 11:19 | ROOPDOC ---
[facility] Report Of Operation Report of Operation INDICATION: Hypotension PROCEDURE: Right femoral central line PROCEDURE WINDOW DRAPER: Dr Cowan CONSENT: Due to emergency reasons consent was implied PROCEDURE SUMMARY: A time out was performed. My hands were washed immediately prior to the procedure. I wore a surgical cap, mask with protective eyewear, sterile gown and sterile gloves throughout the procedure. The right inguinal region was prepped using chlorhexidine scrub and draped in sterile fashion using a full drape and sterile probe cover and sterile gel employed. Anesthesia was achieved using 1% lidocaine. Using ultraound guidance the right femoral vein was accessed with the introducer needle. Venous blood was withdrawn. The syringe was removed and a guidewire was advanced into the introducer needle. A small incision was made at the skin surface with a scalpel and the introducer needle was exchanged for a dilator over the guidewire. After appropriate dilation was obtained, the dilator was exchanged over the wire for a central venous catheter. The wire was removed and the catheter was sutured in place at 20 cm. A sterile shield was placed over the catheter at the insertion site. The patient tolerated the procedure without any hemodynamic compromise. At time of procedure completion, all ports aspirated and flushed properly. Estimated blood loss is 5 cc. RUTH COWAN MD Feb 04, 2021 11:19
[2021-02-04] MEDS ORDERED: VANCOMYCIN INTERMITTENT/PULSE DOSING BY CLINICAL PHARMACIST PER DOSING PROTOCOL XX SCH (11:25)
[2021-02-04 11:27] LABS: ATYPICAL LYMPH 16 % (0-5); LYMPHOCYTES 11 % (16-44); MONOCYTES 7 % (0-5); NEUTROPHILS 13 % (28-66)
[2021-02-04 11:28] LABS: PLATELET CLUMPS SMALL AMT; PLATELET ESTIMATE NORMAL (NORMAL)
[2021-02-04 11:29] LABS: ANISOCYTOSIS 1+; CALCIUM LEVEL 6.5 MG/DL (8.8-10.2); CREATININE FOR GFR 2.35 MG/DL (0.55-1.30); GLOMERULAR FILTRATION RATE 21.4 (>39); MAGNESIUM LEVEL 2.2 MG/DL (1.8-2.4); POTASSIUM SERUM 4.5 MEQ/L (3.5-5.1)
[2021-02-04] MEDS ORDERED: DEXTROSE 50% 50 ML SYRINGE As Ordered ONE (11:32)
[2021-02-04] MEDS ORDERED: DEXTROSE 50% 50 ML SYRINGE IV STA (11:33)
[2021-02-04 11:34] LABS: D-DIMER QUANT > 4000 ng/ml (<500)
[2021-02-04] MEDS ORDERED: GLUCAGON INJ 1MG VIAL SC PRN (11:35)
[2021-02-04] MEDS ORDERED: GLUCOSE 4GM CHEW TABLET PO PRN (11:35)
[2021-02-04] MEDS ORDERED: DEXTROSE 50% 50 ML SYRINGE IV PRN (11:35)
[2021-02-04 11:50] LABS: APPEARANCE, URINE HAZY (CLEAR); BACTERIA, URINE AUTO NEGATIVE (NEGATIVE); BILIRUBIN, URINE AUTO NEGATIVE (NEGATIVE); BLOOD, URINE BLOOD 1+ (NEGATIVE); COLOR, URINE YELLOW (YELLOW); GLUCOSE, URINE (UA) AUTO 1+ mg/dL (NEGATIVE); KETONE, URINE AUTO TRACE mg/dL (NEGATIVE); LEUKOCYTE ESTERASE, URINE AUTO NEGATIVE (NEGATIVE); MUCUS, URINE SMALL (NEGATIVE); NITRITE, URINE AUTO NEGATIVE (NEGATIVE); PROTEIN, URINE AUTO 2+ mg/dL (NEGATIVE); RBC, URINE AUTO 3 /HPF (0-3); SPECIFIC GRAVITY URINE AUTO 1.056 (1.002-1.035); SQUAMOUS EPITHELIAL CELL UR AU 2 /HPF (0-6); UROBILINOGEN, URINE AUTO 0.2 mg/dL (0.0-2.0); WBC, URINE AUTO 2 /HPF (0-3)
[2021-02-04] MEDS ORDERED: SODIUM BICARBONATE 75 MEQ in NS 0.45% 1,000 ML IV SCH (12:00)
[2021-02-04] MEDS ORDERED: VANCOMYCIN HCL 750 MG, VIAL MATE ADAPTER 1 EACH in NS 250 ML IV ONE (12:00)
[2021-02-04] MEDS ORDERED: metroNIDAZOLE 500 MG in IV 1 EA IV SCH ×4 (12:00)
[2021-02-04] MEDS ORDERED: NOREPINEPHRINE BITARTRATE 8 MG in D5W 492 ML IV SCH (12:55)
[2021-02-04] MEDS ORDERED: D5W 500ML IV ONE (12:55)
[2021-02-04] MEDS ORDERED: VANCOMYCIN ORAL SOL 250MG/5ML ORAL SYRINGE PO SCH (13:00)
[2021-02-04] MEDS: CALCIUM GLUCONATE 1,000 MG in D5W MINI-BAG PLUS 100 ML IV SCH ×2 (13:20→13:50)
--- NOTE | 2021-02-04 13:25 | ECGEPIP ---
[facility] Test Date: 2021-02-04 Pat Name: KIRK GUAJARDO Department: Room: [place] [address] Gender: Female Raised Printer: RICARDO : [id number] Requested By: JENIFFER ALMONTE D.O. Order Number: [id number] Reading MD: Elba Weber Measurements Intervals [place] Rate: 93 P: 53 UT: 138 QRS: 38 QRSD: 78 T: 32 QT: 390 QTc: 484 Interpretive Statements Normal sinus rhythm LEFT ATRIAL ENLARGEMENT PROB INF MILD EARLY REPOLAR CHANGES //NEW T ABN IN III C/W 05/18/15 Electronically Signed on 02-04-2021 13:24:49 EDT by Elba Weber
--- NOTE | 2021-02-04 14:11 | IPNPDOC ---
Date Seen The patient was seen on 02/04/21. Progress Note SUBJECTIVE: Unfortunately, Cher had a very involved and difficult overnight. Around 2:30 AM, a rapid assessment was called due to mental status changes as patient had become much less responsive and sluggish. Upon assessment, she was minimally responsive and had a calculated NIH stroke scale of 20. She also had what was described as pronounced rigidity and tremors. CPK and prolactin were ordered due to the seizure-like activity and Keppra was started. Initial imaging in the form of CT head without contrast and MRI of the brain were unremarkable for any acute intracranial pathology. An ABG was done which showed marked metabolic acidosis. Patient was subsequently transferred to the intensive care unit and IV vancomycin was added. Chest x-ray was repeated showing unchanged left lower lobe infiltrate with small pleural effusion. Upon reassessment at 4 AM, patient's neuro status had significantly improved as she was alert and oriented to person place and time and her NIH repeat stroke scale score was 3. Towards the end of the overnight shift around 6 AM, patient began to have mult iple incontinent loose stools that were initially brown and green in color which progressed to very dark brown to black and foul-smelling. Her oxygen requirements also increased as she had been switched to nasal cannula oxygen saturating in the low 90s and was subsequently converted to high flow nasal cannula at change of shift. She became significantly hypotensive at 4AM and overnight team contacted the flight technician service who recommended starting peripheral norepinephrine. Patient was also given multiple normal saline boluses. The overnight team did contact the patient's next of kin, her (Corey), and made him aware of her declining status. OBJECTIVE PHYSICAL EXAMINATION: VITAL SIGNS: Please see below. GENERAL: Very ill-appearing elderly female with minimal responsiveness lying upright in her ICU bed. She responds to her name but it does so with unintelligible speech and struggles completing thoughts. HEENT: Normocephalic, atraumatic. There are multiple macules over the face and neck. On initial assessment this morning pupils were reactive to light and accommodation, with the left pupil slightly more dilated than the right. Conjunctival pallor present. Neck: No significant JVD appreciated. Trachea midline. Oral cavity: Mostly dry mucous membranes. No discernible exudate or erythema appreciated. CARDIOVASCULAR: Very distant heart sounds. Normal S1, S2. Borderline tachycardic rate, regular rhythm. Due to distant heart sounds, difficult to appreciate for m urmurs or rubs. RESPIRATORY: Tachypneic with shallow breathing. Currently on high flow nasal cannula 15 L. Diminished respiratory effort. Symmetric chest expansion. Coarse rhonchi bilaterally but due to diminished tidal volume difficult to appreciate for significant wheezes or crackles ABDOMINAL: Soft, difficult to appreciate for tenderness as patient's mental status has diminished. Moderate fullness periumbilically and in bilateral lower quadrants. Hypoactive bowel sounds present. There is no rigidity appreciated. EXTREMITIES: Bilateral lower extremities are free of pitting edema. Feet are cool to the touch with some light purple discoloration. Diminished pedal pulses. NEUROLOGICAL: She is responsive when her name is called but has not oriented to place or time. Unable to complete thoughts and has unintelligible speech. LABORATORY DATA, IMAGING STUDIES, MICROBIOLOGY: Please see below. Chest x-ray, 02/04/2021- FINDINGS: The heart is moderately enlarged. There is increased density behind the heart in the left base and a few air bronchograms are visible. Atelectasis, likely with some effusion in the pleural space. Pulmonary vasculature is cephalized. The aorta is tortuous. There is a biliary stent visible in the right upper quadrant of the abdomen. IMPRESSION: Small left pleural effusion. Increased air bronchograms and increased density left lower lobe. Cardiomegaly. Brain MRI, 02/04/2021- FINDINGS: Brain: There is mild cerebral volume loss. 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 No signs of a recent infarction or hemorrhage. No midline shift or mass effect. Cerebral ventricles: Normal. No ventriculomegaly. Bones/joints: Unremarkable. Paranasal sinuses: Normal as visualized. No acute sinusitis. Mastoid air cells: Normal as visualized. No mastoid effusion. Soft tissues: Unremarkable. IMPRESSION: Mild cerebral volume loss and chronic white matter changes. No acute intracranial abnormality. Head CT without contrast, 02/04/2021- FINDINGS: Brain: Residual intravascular contrast is present. Mild cerebral volume loss and chronic white matter changes. No hemorrhage or acute infarction is seen. No midline shift or mass effect. Cerebral ventricles: No ventriculomegaly. Paranasal sinuses: Visualized sinuses are clear. Mastoid air cells: Mastoid air cells are clear. Bones/joints: Unremarkable. No acute fracture. Soft tissues: Unremarkable. IMPRESSION: No acute intracranial abnormality. Chest x-ray, 02/04/2021- FINDINGS: Lungs: Airspace consolidation in the left lower lobe and basilar scarring/atelectasis. Pleural spaces: Small left pleural effusion. No pneumothorax. Heart/Mediastinum: Unremarkable. No cardiomegaly. Vasculature: Biliary enteric stent in the right upper quadrant. Bones/joints: Unremarkable. IMPRESSION: Stable left lower lobe infiltrate and small pleural effusion. Chest x-ray, 02/03/21- FINDINGS: Lungs: There is mild bibasilar atelectatic change versus early infiltrate. Heart: Upper limits of normal in size. Mediastinum: There is a hiatal hernia. The mediastinal silhouette is unchanged. Pleural angles: Unremarkable.. Bones and soft tissues: Unremarkable. IMPRESSION: Mild bibasilar atelectasis/infiltrate. CT abdomen pelvis, 02/03/2021- FINDINGS: Preliminary digital [employer] radiograph demonstrates a diffuse moderate ileus with gaseous distension of the colon. An elongate common bile duct stent is seen in the right upper quadrant. On axial CT images there is subsegmental atelectatic change in the lower lobes bilaterally posteriorly. No pleural effusion is seen. No upper abdominal ascites is seen. Pneumobilia is seen. The common bile duct stent is seen with its distal end in the duodenum at the junction of the 2nd and 3rd portion. The proximal end of the stent appears to be in the right common bile duct in the periportal region. It courses through the common bile duct along the anterior margin of the mass seen by MRI and ultrasound in the choledochocele. This mass as attenuation suggestive of some contrast enhancement although we do not have a pre contrast CT. There is retained a a injected ERCP colbert contrast in the lumen of the gallbladder. The gallbladder is rather dilated measuring approximately 11.5 cm in greatest dimension. Gallbladder wall is not thickened and no pericholecystic fluid is seen. There is extensive peripancreatic edema and fluid along the posterior aspect of the pancreas and extending well into the small bowel mesentery. The edema extends in the posterior pararenal soft tissues of the retroperitoneum 1 extending into the aortocaval region. There is no evidence of hemorrhagic change or pancreatic abscess. Kidneys enhance symmetrically. Tiny cortical cysts are seen. The abdominal aorta is tortuous but normal in caliber. A normal appendix is seen. Urinary bladder is unremarkable. The uterus is surgically absent. No abdominal wall defect is seen. There is no visible free air. IMPRESSION: Findings consistent with acute pancreatitis with peripancreatic extensive edema and ileus pattern in the bowel gas. The gallbladder is distended. The common bile duct stent appears in good position coursing along the anterior margin of a mass in the common bile duct. There is mild intrahepatic ductal dilation of the biliary tract. 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 In the ED she was found to have acute pancreatitis likely secondary to the previous days ERCP. In the mathematical statistician of 02/04, patient became less responsive with pronounced rigidity, hypotensive, acidotic and was switched to the ICU and flight technician was consulted. As the day progressed on 02/04, she became less responsive with increased oxygen demand, requiring placement of central line to maintain pressures, and found to have acute C. difficile infection. #Shock, multifactorial -Likely the result of dehydration (hypovolemic shock), infection (septic shock), progression of acute pancreatitis -Patient was hypotensive early this morning and switched to the ICU; no repinephrine started peripherally and then switched centrally after femoral triple-lumen catheter was placed. -Surveying Or Spatial Science Technician service (Dr. Arceo and Dr. Cowan) have been consulted. Hospitalist service appreciates her continued involvement and recommendations. #Hypovolemic shock likely secondary to dehydration / acute pancreatitis / possible GI bleed -Pt npo prior to 02/02 ERCP and developed emesis soon there after; remains npo in setting of acute pancreatitis -She had been started on normal saline in the setting of acute pancreatitis upon admission on 02/03; after transfer to ICU she was administered multiple liter NS boluses -Initially presented with polycythemia likely due to her dehydration. -Patient became critically hypotensive this morning was switched to the ICU. -Norepinephrine was started peripherally and now running centrally via triple- lumen catheter. -Surveying Or Spatial Science Technician service on consult. #Septic shock secondary to acute pancreatitis, C. difficile infection, and possible left lower lobe infiltrate -Initial white count was 30.2 and lipase was 9500; stool panel ordered in the mathematical statistician of 02/04 was positive for C. difficile infection; became more hypoxic the morning of 02/04 with left lower lobe infiltrate/atelectasis -Patient was started on IV Zosyn upon admission on 02/03 for acute pancreatitis; with diminished mental state on mathematical statistician of 02/04, intravenous vancomycin was started. -After results of stool panel were final, patient was started on oral vancomycin and intravenous metronidazole (fulminant C. diff infection). -At time of rapid assessment in mathematical statistician of 02/04, lactic acid reached a zenith of 6.2; trending down to 3.5. -Patient is now currently in the ICU receiving norepinephrine via TLC with titratable orders for MAP of greater than 65 -Initially started on aggressive IV fluid hydration for acute pancreatitis and was subsequently given multiple NS liter boluses ordered. -Patient subsequently became hypernatremic and hyperchloremic, with continued boluses of D5 to follow. -Patient had significant metabolic acidosis with a pH of 6.9 -Surveying Or Spatial Science Technician service is also following. #Acute pancreatitis likely secondary to 02/02 ERCP -Presented on 02/03 with multiple episodes of vomiting and associate abdominal pain soon after 02/02 ERCP -Initial lipase was 9500; trending lipase and has increased to 10,000 -CBD stent placed during ERCP with hepatic bile duct mass -Patient remains strict n.p.o. -Intra bladder / intra-abdominal pressures measured in the morning were 17 and increased to 21 by the afternoon -Discussed with general surgery about intra-abdominal pressures; no plans for intervention -Dr. Peralta (gastroenterology) is familiar with the patient and is following the patient during this admission; hospitalist service appreciates his continued recommendations and involvement. #Acute renal failure with oliguria -Patient presented on 02/03 with a serum creatinine of 0.82 which increased into the 2 range overnight -Likely combination of both dehydration in acute pancreatitis with increased abdominal pressure potentially limit amount of perfusion to the kidney -Aggressive IV fluid hydration as described above; due to associated hyperchloremia and hypernatremia, fluid boluses now in the form of D5 -Patient also concurrently receiving sodium bicarb and dextrose and water at 150 an hour -Patient has not a candidate for hemodialysis due to combination of current multifactorial shock, C. difficile, malignancy, and DNR/DNI status -Nephrology service (Dr. Perez) has been consulted. We appreciate their continued involvement and recommendations. #High anion gap metabolic acidosis likely secondary from acute infection -Causes likely secondary to infection, uremia, and lactic acidosis -Anion gap calculated at 30; initial ABG result of 6.9, with decreased bicarb -IV sodium bicarb ordered; every 4 hours VBG's #Electrolyte abnormalities likely secondary to acute infection -Patient is hyperchloremic, hyponatremic, and hypocalcemic -Normal saline boluses have been stopped and now giving dextrose boluses -Hypocalcemia is likely result of acute pancreatitis and saponification via increased serum lipase -Calcium gluconate ordered -On telemetry #Hypoglycemia likely secondary to septic shock -Fingerstick 37 this morning, amp of D5 given -Continuing with fingersticks and D5 boluses as well as sodium bicarb with dextrose, norepinephrine with dextrose, and calcium gluconate with dextrose. #Fulminant C. difficile infection -Patient developed copious loose stools earlier this morning; stool panel positive for C. difficile A/B toxin -Patient had been receiving IV vancomycin along with other IV medications in the setting of septic shock and acute pancreatitis-current recommendations fulminant C. difficile infection is to use high-dose oral vancomycin. In addition, IV metronidazole has been added #Hypoxemia likely secondary to sepsis -Patient's oxygen demands increased significantly this morning, she went from room air to now high flow nasal cannula at 15 L -On telemetry with SPO2 monitoring #Hepatic bile duct mass with brush biopsy proven malignancy -[place] sample from ERCP positive for malignancy -Unknown at this time specific GI source of cancer -Should pancreatic be source, patient would not be a surgical candidat and likely would not receive systemic chemotherapy well #Suspected lower GI bleed -Stool occult positive-around change of shift this morning patient had multiple loose stools that became very dark in color with characteristic GIB odor -Occult stool positive -Protonix drip and Carafate ordered -Rectal tube in place -Gastroenterology previously on consult in the setting of acute pancreatitis -Patient n.p.o. #Altered mental status with seizure-like activity -Sincerely morning hours, patient has become progressively less responsive and incontinent -Around 2:30 AM, rapid assessment called and patient was described as tremulous with rigidity -Stroke work-up performed with initial NIH stroke scale of 20, but CT head and brain MRI were negative for any acute intracranial pathology; repeat NIH stroke scale score came down to 3 -As shift has progressed today, patient has become less and less responsive and incontinent #Increased intra-abdominal pressure likely secondary to edema from acute pancreatitis -Intra-abdominal pressure was elevated at 17; peaked at 21 -Discussed with surgery religion department chair; surgical decompression not indicated -c/w closely monitored and she remains strict n.p.o. #History of hypertension -Patient's home amlodipine held in the setting of her hypotension #DVT prophylaxis: - Continue with teds and sequentials in the setting of GI bleed CODE STATUS: DNR/DNI Disposition: - Patient has quickly decompensated and has a very poor prognosis. - Extensive conversations with the patient's listed next of kin, her Corey ([phone]/home [phone]), have been held and he has been made aware of her grave status and the fact she will likely not survive this admission. - Hospitalist service recommended benefits of switching to comfort measures only; at this time, Corey wishes patient remain DNR/DNI. VS, I&O, [facility] Signs/I&O Vital Signs Date Time Temp Pulse Resp B/P (MAP) Pulse Ox O2 Delivery O2 Flow Rate FiO2 02/04/21 06:00 90 22 95/51 (66) 92 Nasal Cannula 6.0 02/04/21 04:15 98.7 I&O- Last 24 Hours up to 6 AM 02/04/21 06:00 Intake Total 1450 ml Balance 1450 ml Laboratory Data 24H LABS Laboratory Tests 2 02/03/21 13:45: Urine Color YELLOW, Urine Appearance HAZY, Urine pH 6.0, Urine Specific [place] 1.056, Urine Protein 2+H, Urine Glucose (Auto)(UA) 1+H, Urine Ketones (Auto) TRACEH, Urine Blood 1+H, Urine Nitrite NEGATIVE, Urine Bilirubin NEGATIVE, Urine Urobilinogen 0.2, Urine Leukocyte Esterase (Auto) NEGATIVE, Urine WBC (Auto) 2, Urine RBC (Auto) 3, Urine Hyaline Casts (Auto) 0, Urine Bacteria (Auto) NEGATIVE, Urine Squamous Epithelial Cells 2, Urine Mucus (Auto) SMALL, Urine Sperm (Auto) 02/03/21 16:25: Coronavirus (COVID-19)(PCR) NEGATIVE, Influenza Type A (RT-PCR) NEGATIVE, Influenza Type B (RT-PCR) NEGATIVE, Respiratory Syncytial Virus (PCR) NEGATIVE 02/03/21 20:09: Lactic Acid Level 3.2*H, Magnesium Level 1.9, Gamma Glutamyl Transferase 29, Triglycerides Level 70, Total Cholesterol 171, LDL Cholesterol 109H, Non-HDL Cholesterol (LDL + VLDL) 123, Total HDL Cholesterol 48, Cholesterol/HDL Ratio 3.562 02/04/21 01:41: Magnesium Level 1.7L, Triglycerides Level 74, Total Cholesterol 118, LDL Cholesterol 63, Non-HDL Cholesterol (LDL + VLDL) 78, Total HDL Cholesterol 40, Cholesterol/HDL Ratio 2.950, Neutrophils (%) (Auto) , Nucleated Red Blood Cells % (auto) 0.1H, Neutrophils 64, Band Neutrophils 10, Lymphocytes (Manual) 8L, Monocytes (Manual) 6H, Metamyelocytes 9H, Atypical Lymphocytes 3, Toxic Vacuolation 1+, Smudge Cells 1+, Platelet Estimate NORMAL, Anion Gap 15, Glomerular Filtration Rate 25.3L, Estimated Mean Plasma Glucose 103, Hemoglobin A1c 5.2, Lactic Acid Followup at 4 Hours 5.0*H, Calcium Level 7.8#L, Total Bilirubin 1.0, Aspartate Amino Transf (AST/SGOT) 34, Alanine Aminotransferase (ALT/SGPT) 24, Alkaline Phosphatase 56, Total Protein 5.0#L, Albumin 2.8#L, Albumin/Globulin Ratio 1.3, Lipase 99806L, Thyroid Stimulating Hormone (TSH) 4.320H, Prolactin 131.0 02/04/21 02:29: Bedside Glucose (Misc Panel) 140H 02/04/21 02:36: Blood Gas Bicarbonate Standard 9.6L, Arterial Blood pH 6.992*L, Arterial Blood Partial Pressure CO2 38.5, Arterial Blood Partial Pressure O2 209.7H, Arterial Blood Total CO2 10.3L, Arterial Blood HCO3 9.1L, Arterial Blood Base Excess - 21.9L, Arterial Blood Oxygen Saturation 98.8 02/04/21 04:02: Immature Granulocyte % (Auto) , Neutrophils (%) (Auto) , Lymphocytes (%) (Auto) , Monocytes (%) (Auto) , Eosinophils (%) (Auto) , Basophils (%) (Auto) , Neutrophils # (Auto) , Lymphocytes # (Auto) , Monocytes # (Auto) , Eosinophils # (Auto) , Basophils # (Auto) , Nucleated Red Blood Cells % (auto) 0.1H, Neutrophils 56, Band Neutrophils 17H, Lymphocytes (Manual) 10L, Monocytes (Manual) 2, Metamyelocytes 12H, Atypical Lymphocytes 3, Toxic Vacuolation 1+, Platelet Estimate NORMAL, Prothrombin Time 17.2H, Prothromb Time International Ratio 1.36, Activated Partial Thromboplast Time 34.9, Anion Gap 19H, Glomerular Filtration Rate 20.6L, Calcium Level 8.2L, Magnesium Level 2.8H, Total Bilirubin 0.8, Aspartate Amino Transf (AST/SGOT) 45H, Alanine Aminotransferase (ALT/SGPT) 27, Alkaline Phosphatase 55, Ammonia 60H, Total Creatine Kinase 372H, Total Protein 5.0L, Albumin 2.8L, Albumin/Globulin Ratio 1.3, Lipase 29374A, Procalcitonin 25.39 02/04/21 04:03: Lactic Acid Level 6.2*H 02/04/21 04:37: Blood Gas Bicarbonate Standard 15.7L, Arterial Blood pH 7.210*L, Arterial Blood Partial Pressure CO2 41.3, Arterial Blood Partial Pressure O2 75.7, Arterial Blood Total CO2 17.4L, Arterial Blood HCO3 16.1L, Arterial Blood Base Excess - 11.2L, Arterial Blood Oxygen Saturation 92.7L 02/04/21 07:49: Blood Gas Bicarbonate Standard 13.7L, Arterial Blood pH 7.155*L, Arterial Blood Partial Pressure CO2 40.4, Arterial Blood Partial Pressure O2 77.3, Arterial Blood Total CO2 15.2L, Arterial Blood HCO3 13.9L, Arterial Blood Base Excess - 14.2L, Arterial Blood Oxygen Saturation 92.9L 02/04/21 08:46: Lactic Acid Followup at 4 Hours 3.8*H 02/04/21 10:35: 02/04/21 10:46: Neutrophils (%) (Auto) , Nucleated Red Blood Cells % (auto) 0.2H, Neutrophils 13L, Band Neutrophils 53H, Lymphocytes (Manual) 11L, Monocytes (Manual) 7H, Atypical Lymphocytes 16H, Anisocytosis 1+, Macrocytosis 1+, Platelet Estimate NORMAL, Clumped Platelets SMALL AMT, Prothrombin Time 19.7H, Prothromb Time International Ratio 1.62, Fibrinogen 326, D-Dimer, Quantitative > 4000H, Blood Gas Puncture Site UNKNOWN, Blood Gas Bicarbonate Standard 11.5, Venous Blood pH 6.973L, Venous Blood Partial Pressure CO2 70.2H, Venous Blood Partial Pressure O2 43.1, Venous Blood Total Carbon Dioxide 18.1L, Venous Blood HCO3 15.9L, Venous Blood Oxygen Saturation 65.1, Venous Blood Base Excess -16.9L, Anion Gap 13, Glomerular Filtration Rate 21.4L, Lactic Acid Level 3.5*H, Calcium Level 6.5#L, Magnesium Level 2.2, Lactate Dehydrogenase 500H 02/04/21 12:42: Bedside Glucose (Misc Panel) 91 CBC/BMP Laboratory Tests 02/04/21 01:41 02/04/21 04:02 02/04/21 08:46 02/04/21 10:46 Microbiology Microbiology 02/04/21 Stool Occult Blood (TONE) - Final, Complete 02/04/21 Gastrointestinal Tract Panel (PCR) - Final, Complete Clostridium Difficile A/B 02/03/21 Blood Culture, Received Pending 02/03/21 Blood Culture, Received Pending GME ATTESTATION GME ATTESTATION My faculty preceptor for this patient encounter was physically present during the encounter and was fully available. All aspects of the patient interview, examination, medical decision making process, and medical care plan development were reviewed and approved by the faculty preceptor. The faculty preceptor is aware and concurs with the plan as stated in the body of this note and will attest to such by his/her cosignature. ATTENDING NOTE I, Shubham Bishop, have independently examined this patient and performed my own physical exam, as well as reviewed the documentation and edited where necessary. I have discussed in detail with the resident / student the findings and plan of treatment as documented by the resident / student and edited their note. I agree with their findings and treatment plan and have edited their documentation. I will continue to follow the patient during this hospital stay. JENIFFER ALMONTE D.O. Feb 04, 2021 14:11 SHUBHAM BISHOP MD Feb 06, 2021 14:08
[2021-02-04] MEDS ORDERED: SODIUM BICARBONATE 100 MEQ in D5W 1,000 ML IV SCH (15:00)
[2021-02-04] MEDS ORDERED: LORazepam 2 MG/ML VIAL IV PRN (15:10)
[2021-02-04] MEDS ORDERED: SCOPOLAMINE 1MG TRANSDERMAL PATCH TOP PRN (15:10)
--- NOTE | 2021-02-04 15:18 | IPNPDOC ---
Text Note Date of Service The patient was seen on 02/04/21. NOTE Interval update: - Patient had a further decline in her status - Patient was non-responsive to stimuli had become bradycardic - was called to the bedside along with nursing staff (Tawny and Rebeca) - I have advised him of the clinical deterioration and the unfortunate likely poor prognosis - He agrees that the focus should be on comfort at this point - Medications were adjusted to focus on comfort - Her remains at her bedside holding her hand VS,Fishbone, I+O VS, Fishbone, I+O Laboratory Tests 02/04/21 01:41 02/04/21 04:02 02/04/21 08:46 02/04/21 10:46 Vital Signs Date Time Temp Pulse Resp B/P (MAP) Pulse Ox O2 Delivery O2 Flow Rate FiO2 02/04/21 10:56 89 72/51 (58) 86 High Flow Cannula 15.0 02/04/21 10:00 46 02/04/21 08:04 97.2 I&O- Last 24 Hours up to 6 AM 02/04/21 05:59 Intake Total 1450 ml Balance 1450 ml SANJAY MARIE MD Feb 04, 2021 15:18
--- NOTE | 2021-02-05 21:01 | CR ---
NEPHROLOGY CONSULTATION DATE: 02/04/2021 REQUESTING PHYSICIAN: Dr. Shubham Bishop CONSULTING PHYSICIAN: Dr. Marion Perez REASON FOR CONSULTATION: Management of acute oliguric renal failure and metabolic acidosis. CHIEF COMPLAINT: The patient was transferred to the ICU because of altered mental status and a Rapid Response was called. She was sluggish and hypotensive. HISTORY OF PRESENT ILLNESS: Note: History was obtained from the patient's chart and from the Medical Team. The patient herself is unable to provide any history at this time. Cher Lin is a 75-year-old female who was not feeling well for the last couple of months. Finally she was seen by her Primary Care where abdominal imaging was abnormal. She was sent to GI. An MRI was done which showed a mass in the pancreatic head area. She got the ERCP done by and a stent in the common bile duct was placed. [place] biopsy came back positive for malignancy. She presented to the hospital yesterday with abdominal pain and vomiting. Abdominal pain was in the upper quadrant. The patient was found to have significant leukocytosis with neutrophilia. Imaging showed acute pancreatitis and gallbladder distention. She was admitted under the Hospitalist Service. Aggressive IV fluid hydration was done. IV antibiotics were also given and last night she decompensated. She had to be transferred to the ICU. She got a right femoral line placed. She had to be started on Levophed. The patient went into acute oliguric renal failure. She was also getting acidotic. Nephrology Service was called for further help in the management of this patient. The patient needed my immediate attention. I went and saw the patient at the bedside in the ICU. The patient was very lethargic. She was struggling to breathe. She was not able to answer my questions, very obtunded. She was getting IV fluid bolus when I saw her. PAST MEDICAL HISTORY: The patient's past medical history is significant for: 1. 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 2. History of hypertension. 3. History of basal cell carcinoma of the nose. 4. Vertebral artery stenosis. PAST SURGICAL HISTORY: The patient's past surgical history is significant for: 1. Status post ERCP on February 02, 2021. 2. History of basal cell carcinoma excision from the nose. ALLERGIES: She is allergic to sulfa drugs. FAMILY HISTORY: I was unable to obtain the family history. SOCIAL HISTORY: As per documentation, she lives with her . She is an ex-smoker. There is no history of illicit drug abuse or alcohol abuse. REVIEW OF SYSTEMS: I was unable to review any systems with her. She is very obtunded and gasping for breath. PHYSICAL EXAMINATION: GENERAL APPEARANCE: The patient is laying in the bed, very drowsy, eyes are half closed. VITAL SIGNS: Temperature is 97 degrees Fahrenheit, blood pressure was 82/37, pulse of 72, respiratory rate of 27, saturating 87% on 15 liters FiO2. GENERAL APPEARANCE: The patient is awake, alert, oriented x3, laying in bed in no apparent distress. HEENT: Mucous membranes are Doxycycline. HEAD AND NECK: Pupils have sluggish response to light. Neck is supple. There is no JVD. CARDIOVASCULAR: S1, S2, bradycardia. EXTREMITIES: No edema of the bilateral lower extremities. RESPIRATORY: Mildly decreased breath sounds at the bases. No active rales or rhonchi. ABDOMEN: Distended, decreased bowel sounds and a moderate to severe amount of tenderness in the epigastric region. GENITOURINARY: She has an indwelling Boothe catheter. MUSCULOSKELETAL: No clubbing, no cyanosis. CAPACITY ANALYST: The patient is very obtunded at this time. She moves extremities on painful stimuli and opens her eyes on loud commands. LAB REVIEW: CBC showed a WBC of 12.1, hemoglobin 14.8, platelet count 261. CBC on arrival showed a WBC of 30.2. D-dimer was more than 4,000. INR is 1.6. Urinalysis done yesterday showed 2+ protein, 1+ blood. ABG done in the morning showed pH of 7.15, pco2 of 40, pO2 of 77. Bicarbonate is 15. 02 sat is 92%. BMP showed sodium of 148, potassium 4.5, chloride 116, bicarbonate 19, BUN 60, creatinine is 2.3. Glucose is 37. Lactic 3.5, calcium 6.5, magnesium 6.2. Lactate dehydrogenase is 500. Microbiology C-diff is positive. Blood cultures are pending so far. IMAGING: A chest x-ray showed small left pleural effusion, increased air bronchograms. CAT scan of the abdomen and pelvis done yesterday showed acute pancreatitis with peripancreatic extensive edema in ileus pattern in the bowel gas. Gallbladder is distended. Common bile duct stent appears in good position. CURRENT INPATIENT MEDICATIONS: The patient's medications were all reviewed by myself. She was on Levophed. She was given a dose of calcium gluconate. She is IV Keppra 500 mg q. 12 hourly, Flagyl 500 mg IV q. 8 hourly, normal saline 3 liter bolus has been given and normal saline 150 mL an hour was running. She is on Zosyn 3.375 grams q. 6 hourly, Protonix drip. She was given 2 amps of IV bicarbonate, Vancomycin at 750 mg IV. Antihypertensives have been stopped. She is on Dificid 200 mg p.o. twice daily, Morphine p.r.n. for pain, Protonix 40 mg IV, and oral Carafate. ASSESSMENT: A 75-year-old female with recently diagnosed malignancy in the common bile duct, status post ERCP, common bile duct stenting, now admitted with acute pancreatitis, septic and hypotensive shock with multiorgan failure, high anion gap metabolic acidosis, hypernatremia, acute oliguric renal failure, fulminant C-diff colitis, hypoxic respiratory failure. PLAN: The patient is DNR/DNI. She is in respiratory distress. At this point because of her code status, we cannot intubate the patient. She is very hypotensive despite being on the pressors. Unfortunately, I am unable to help the patient at this time. She is deteriorating despite aggressive fluid hydration and multiple oral and IV antibiotics. She is not even a candidate for CVVHDF with these pressures. She has multi-organ failure. In my opinion, the patient is not going to survive this hospitalization. I called her to inform her current status and my recommendation to make the patient comfort measures only, however I was unable to talk to him, and I left a voicemail to call me back. I have talked in detail to the patient's Medical Team including the medical record coder and the Hospitalist Service, and I have let them know that unfortunately the patient is not salvageable, and I see in the documentation that ultimately the patient was made comfort measures only. Total critical care time spent in the management of this patient today afternoon in the ICU excluding all the procedures was one hour and thirty minutes. CECELIA
--- NOTE | 2021-02-06 14:17 | DS.PDOC ---
Discharge Summary General Date of Admission Feb 03, 2021 at 18:43 Date of Discharge 02/04/2021 Discharge Summary PROCEDURES PERFORMED DURING STAY: 02/04/2021: Dr. Cowan placed R femoral TLC ADMITTING DIAGNOSES / DISCHARGE DIAGNOSES: Shock, multifactorial Septic shock 2/2 acute pancreatitis, C. difficile infection, and possible left lower lobe infiltrate Acute renal failure with oliguria High anion gap metabolic acidosis likely secondary from acute infection Electrolyte abnormalities likely secondary to acute infection Hypoglycemia likely secondary to septic shock Fulminant C. difficile infection Acute pancreatitis likely secondary to 02/02 ERCP Hepatic bile duct mass with brush biopsy proven malignancy Suspected lower GI bleed Acute metabolic encephalopathy Acute hypoxic respiratory failure Increased intra-abdominal pressure likely secondary to edema from acute pancreatitis HTN DVT prophylaxis COMPLICATIONS/CHIEF COMPLAINT: Abdominal pain HISTORY OF PRESENT ILLNESS / HOSPITAL COURSE: Patient is a 75-year-old female with PMHx of ERCP (02/02 with CBD stent placement for hepatic bile duct mass with brush sample proven malignancy), HTN, skin cancer (likely basal cell), vertebral artery stenosis, who presented to the ED on the morning of 02/03 due to abdominal pain beginning shortly after completion of her ERCP. Upon arrival, patient was found to have significantly elevated lipase. Patient was admitted to the hospitalist service for further evaluation and treatment of acute pancreatitis. GI was called on consultation. Unfortunately, overnight patient had a decline in her status despite aggressive intervention. Patient was noted to have questionable signs of the seizures/stroke and had a workup completed throughout the night. She was started on Keppra after the workup was negative. Patient became hypotensive at 4 AM was transferred to ICU for further intervention and orthoptist was called on consultation. After extensive discussion with the , he had come to the bedside and patient was ultimately transitioned to comfort measures. Patient eventually succumbed to her illness that afternoon, 02/04 at 3:24PM. Vital Signs/I&Os Vital Signs Date Time Temp Pulse Resp B/P (MAP) Pulse Ox O2 Delivery O2 Flow Rate FiO2 02/04/21 15:15 35 44 02/04/21 14:45 27 54/27 (36) Non-Rebreather 02/04/21 14:31 15.0 50 02/04/21 12:01 96.8 Microbiology Microbiology 02/04/21 Stool Occult Blood (TONE) - Final, Complete 02/04/21 Gastrointestinal Tract Panel (PCR) - Final, Complete Clostridium Difficile A/B 02/03/21 Blood Culture - Preliminary, Resulted No Growth after 48 hours. All Specime... 02/03/21 Blood Culture - Preliminary, Resulted No Growth after 48 hours. All Specime... Discharge Medications Scheduled Amlodipine Besylate (Norvasc) 10 Mg Tablet, 10 MG PO DAILY, (Reported) Cholecalciferol (Vitamin D3) (Vitamin D3) 1,000 Unit Tablet, 2,000 UNITS PO DAILY, (Reported) Multivitamins (Thera M Plus Tablet) 1 Each Tablet, 1 TAB PO DAILY, (Reported) Ubidecarenone (Coq-10) 100 Mg Capsule, 100 MG PO DAILY, (Reported) Scheduled PRN Ibuprofen (Ibuprofen) 400 Mg Tablet, 400 MG PO ASDIRECTED PRN for PAIN LEVEL 1- 4, (Reported) Allergies Coded Allergies: Sulfa (Sulfonamide Antibiotics) (Verified Allergy, Intermediate, 02/02/21) SANJAY MARIE MD Feb 06, 2021 14:17
== END 2021-02-04 16:43 | disposition expired | DRG 871 ==
LOC: M ED 09:14 → M ED INP 18:43 → ENRESERV 19:59 → M PCU 21:08 → M ICU 02-04 03:43
PROVIDERS: ADMIT Internal Medicine; ATTEND Internal Medicine
PROC: 06HN33Z Insertion of Infusion Device into Left Femoral Vein, Percutaneous Approach (ICD-10-PCS; principal; 2021-02-04)
DX: A41.9 Sepsis, unspecified organism (principal); K85.90 Acute pancreatitis without necrosis or infection, unspecified; G93.41 Metabolic encephalopathy; R65.21 Severe sepsis with septic shock; J96.01 Acute respiratory failure with hypoxia; C24.0 Malignant neoplasm of extrahepatic bile duct; E87.2 Acidosis; J90 Pleural effusion, not elsewhere classified; A04.72 Enterocolitis due to Clostridium difficile, not specified as recurrent; N17.9 Acute kidney failure, unspecified; E87.0 Hyperosmolality and hypernatremia; K92.2 Gastrointestinal hemorrhage, unspecified; Z66 Do not resuscitate; Z51.5 Encounter for palliative care; D49.0 Neoplasm of unspecified behavior of digestive system; I10 Essential (primary) hypertension; Z87.891 Personal history of nicotine dependence; E87.6 Hypokalemia; S60.211D Contusion of right wrist, subsequent encounter; I77.1 Stricture of artery; Z20.822 Contact with and (suspected) exposure to COVID-19; Z79.899 Other long term (current) drug therapy; Z88.2 Allergy status to sulfonamides; G40.909 Epilepsy, unspecified, not intractable, without status epilepticus; I95.9 Hypotension, unspecified; E87.8 Other disorders of electrolyte and fluid balance, not elsewhere classified; E16.2 Hypoglycemia, unspecified; Z96.89 Presence of other specified functional implants; R57.1 Hypovolemic shock; Z85.828 Personal history of other malignant neoplasm of skin